=== PATIENT | male | born 1985 | race African-American/Black ===

== ENCOUNTER 2016-09-04 12:59 | Emergency (ER) | payer SELFPAY ==
--- NOTE | 2016-09-04 14:07 | EDM.PDOC ---
ED HPI GENERAL MEDICAL PROBLEM - General Chief Complaint: General Stated Complaint: UNK Time Seen by Provider: 09/04/16 13:02 Source of Information: Reports: Patient History Limitations: Reports: No Limitations - History of Present Illness INITIAL COMMENTS - FREE TEXT/NARRATIVE: History of present illness: [31-year-old male coming in complaining of dental abscess. Patient indicates that it is hurting right thigh and feeling and he doesn't understand because he sustained no trauma to this area.] Review of systems: As per history of present illness and below otherwise all systems reviewed and negative. Past medical history: As per history of present illness and as reviewed below otherwise noncontributory. Surgical history: As per history of present illness and as reviewed below otherwise noncontributory. Social history: No reported history of drug or alcohol abuse. Family history: As per history of present illness and as reviewed below otherwise noncontributory. Physical exam: HEENT: Atraumatic, normocephalic, pupils reactive, negative for conjunctival pallor or scleral icterus, mucous membranes moist, throat clear, neck supple, nontender, trachea midline. Mild amount of swelling to the right jaw area on examination slight swelling of gum right at the region of molar 30. Lungs: Clear to auscultation, breath sounds equal bilaterally, chest nontender. Heart: S1S2, regular, negative for clicks, rubs, or JVD. Abdomen: Soft, nondistended, nontender. Negative for masses or hepatosplenomegaly. Negative for costovertebral tenderness. Pelvis: Stable nontender. Genitourinary: Deferred. Rectal: Deferred. Extremities: Atraumatic, negative for cords or calf pain. Neurovascular unremarkable. Neuro: Awake, alert, oriented. Cranial nerves II through XII unremarkable. Cerebellum unremarkable. Motor and sensory unremarkable throughout. Exam nonfocal. Assessment benign save as noted in the PE with potential dental abscess is immediately to the area of the filling which is most suspicious for some potential shrinking and leakage of an amalgam filling Diagnostics: [] Therapeutics: [] Impression: [Dental abscess] Plan: [Antibiotics, pain] Definitive disposition and diagnosis as appropriate pending reevaluation and review of above. dental Pain Score (Numeric/FACES): 9 - Related Data Allergies Allergy/AdvReac Type Severity Reaction Status Date / Time No Known Allergies Allergy Verified 09/04/16 13:23 Home Meds: Home Meds Acetaminophen [Tylenol Extra Strength] 1,000 mg PO Q4H PRN 09/04/16 [History] Past Medical History - Past Health History Medical/Surgical History: Denies Medical/Surgical History Social & Family History - Family History Oncologic: Reports: Other (See Below) Other Oncologic Family History: unknown cancer - Tobacco Use Smoking Status *Q: Never Smoker Second Hand Smoke Exposure: No - Caffeine Use Caffeine Use: Reports: None - Alcohol Use Days Per Week of Alcohol Use: 1 Number of Drinks Per Day: 1 Total Drinks Per Week: 1 - Recreational Drug Use Recreational Drug Use: No ED ROS GENERAL - Review of Systems Review Of Systems: See Below (See history of present illness) ED EXAM, GENERAL - Physical Exam Exam: See Below (History of present illness) Course - Vital Signs Last Recorded V/S: Last Vital Signs Temp 36.3 C 09/04/16 13:20 Pulse 83 09/04/16 13:20 Resp 16 09/04/16 13:20 BP 124/77 09/04/16 13:20 Pulse Ox 94 L 09/04/16 13:20 Departure - Departure Time of Disposition: 14:05 Disposition: Home, Self-Care 01 Condition: good Clinical Impression: Dental abscess - Discharge Information Forms: ED Department Discharge Additional Instructions: The following information is given to patients seen in the emergency department who are being discharged to home. This information is to outline your options for follow-up care. We provide all patients seen in our emergency department with a follow-up referral. The need for follow-up, as well as the timing and circumstances, are variable depending upon the specifics of your emergency department visit. If you don't have a primary care physician on staff, we will provide you with a referral. We always advise you to contact your personal physician following an emergency department visit to inform them of the circumstance of the visit and for follow-up with them and/or the need for any referrals to a consulting specialist. The emergency department will also refer you to a specialist when appropriate. This referral assures that you have the opportunity for follow-up care with a specialist. All of these measure are taken in an effort to provide you with optimal care, which includes your follow-up. Under all circumstances we always encourage you to contact your private physician who remains a resource for coordinating your care. When calling for follow-up care, please make the office aware that this follow-up is from your recent emergency room visit. If for any reason you are refused follow-up, please contact the [facility] Emergency Department at and asked to speak to the emergency department charge nurse. Take medication as directed Followup with a dentist NEL Return to ED as needed as discussed
[2016-09-04 14:23] VITALS: BP 130/82
== END 2016-09-04 14:24 | disposition home or self-care (01) ==
LOC: MW.ED 12:59 → MERGE 12:59 → MW.ED 14:24
DX: K04.7 Periapical abscess without sinus (principal)
CPT/HCPCS: 99282; 99283

== ENCOUNTER 2017-05-21 23:12 | Emergency (ER) | payer SELFPAY ==
[2017-05-21] MEDS ORDERED: Azithromycin 250 MG Tab PO STA (23:39)
[2017-05-21] MEDS ORDERED: cefTRIAXone 250 MG in Lidocaine 1% 1 ML IM ONE (23:39)
--- NOTE | 2017-05-21 23:41 | EDM.PDOC ---
ED HPI GENERAL MEDICAL PROBLEM - General Chief Complaint: Genitourinary Problem Stated Complaint: UNKNOWN Time Seen by Provider: 05/21/17 23:40 Source of Information: Reports: Patient - History of Present Illness INITIAL COMMENTS - FREE TEXT/NARRATIVE: HISTORY AND PHYSICAL: History of present illness: [Patient presents with urinary frequency dysuria after intercourse with a new partner no fever nausea vomiting chills sweats ] Review of systems: As per history of present illness and below otherwise all systems reviewed and negative. Past medical history: As per history of present illness and as reviewed below otherwise noncontributory. Surgical history: As per history of present illness and as reviewed below otherwise noncontributory. Social history: No reported history of drug or alcohol abuse. Family history: As per history of present illness and as reviewed below otherwise noncontributory. Physical exam: HEENT: Atraumatic, normocephalic, pupils reactive, negative for conjunctival pallor or scleral icterus, mucous membranes moist, throat clear, neck supple, nontender, trachea midline. Lungs: Clear to auscultation, breath sounds equal bilaterally, chest nontender. Heart: S1S2, regular, negative for clicks, rubs, or JVD. Abdomen: Soft, nondistended, nontender. Negative for masses or hepatosplenomegaly. Negative for costovertebral tenderness. Pelvis: Stable nontender. Genitourinary: Deferred. Rectal: Deferred. Extremities: Atraumatic, negative for cords or calf pain. Neurovascular unremarkable. Neuro: Awake, alert, oriented. Cranial nerves II through XII unremarkable. Cerebellum unremarkable. Motor and sensory unremarkable throughout. Exam nonfocal. Diagnostics: [UA with culture GC Chlamydia ] Therapeutics: [Rocephin 250 mg IM Azithromycin 1 g by mouth Cipro 500 by mouth twice a day #14 no refill ] Impression: Penile discharge Dysuria] Definitive disposition and diagnosis as appropriate pending reevaluation and review of above. urination Pain Score (Numeric/FACES): 8 - Related Data Allergies Allergy/AdvReac Type Severity Reaction Status Date / Time No Known Allergies Allergy Verified 05/21/17 23:37 Home Meds: Home Meds Acetaminophen [Tylenol Extra Strength] 1,000 mg PO Q4H PRN 09/04/16 [History] Past Medical History - Past Health History Medical/Surgical History: Denies Medical/Surgical History Social & Family History - Family History Oncologic: Reports: Other (See Below) Other Oncologic Family History: unknown cancer - Tobacco Use Smoking Status *Q: Never Smoker Second Hand Smoke Exposure: No - Caffeine Use Caffeine Use: Reports: None - Alcohol Use Days Per Week of Alcohol Use: 1 Number of Drinks Per Day: 1 Total Drinks Per Week: 1 - Recreational Drug Use Recreational Drug Use: No ED ROS GENERAL - Review of Systems Review Of Systems: ROS reveals no pertinent complaints other than HPI. ED EXAM, GENERAL - Physical Exam Exam: See Below Course - Vital Signs Last Recorded V/S: Last Vital Signs Temp 98.2 F 05/21/17 23:38 Pulse 80 05/21/17 23:38 Resp 14 05/21/17 23:38 BP 116/81 05/21/17 23:38 Pulse Ox 98 05/21/17 23:38 - Orders/Labs/Meds Orders: Active Orders 24 hr Category Date Time Status CHLAMYDIA AND GONORRHEA BY TMA Stat Lab 05/21/17 23:33 Received CULTURE URINE [RM] Stat Lab 05/21/17 23:33 Received Labs: Laboratory Tests 05/21/17 Range/Units 23:33 Urine Color YELLOW Urine Appearance HAZY Urine pH 6.0 (5.0-8.0) Ur Specific Biggs <= 1.005 (1.001-1.035) Urine Protein NEGATIVE (NEGATIVE) mg/dL Urine Glucose (UA) NEGATIVE (NEGATIVE) mg/dL Urine Ketones NEGATIVE (NEGATIVE) mg/dL Urine Occult Blood NEGATIVE (NEGATIVE) Urine Nitrite NEGATIVE (NEGATIVE) Urine Bilirubin NEGATIVE (NEGATIVE) Urine Urobilinogen 0.2 (<2.0) EU/dL Ur Leukocyte Esterase SMALL (NEGATIVE) Urine RBC 0-2 (0-2/HPF) Urine WBC 10-12 (0-5/HPF) Ur Epithelial Cells RARE (NONE-FEW) Urine Bacteria FEW (NEGATIVE) Meds: Medications Discontinued Medications Generic Name Dose Route Start Last Admin Trade Name Sageq PRN Reason Stop Dose Admin Azithromycin 1,000 mg 05/21/17 23:39 Zithromax PO 05/21/17 23:40 NOW STA Ceftriaxone Sodium 250 mg/ 1 mls @ 1 mls/sec 05/21/17 23:39 Lidocaine HCl IM 05/21/17 23:40 ONETIME ONE Departure - Departure Time of Disposition: 23:57 Disposition: Home, Self-Care 01 Condition: Good Clinical Impression: UTI, Urinary tract infectious disease - Discharge Information Referrals: PCP,None [Primary Care Provider] - Forms: ED Department Discharge Additional Instructions: The following information is given to patients seen in the emergency department who are being discharged to home. This information is to outline your options for follow-up care. We provide all patients seen in our emergency department with a follow-up referral. The need for follow-up, as well as the timing and circumstances, are variable depending upon the specifics of your emergency department visit. If you don't have a primary care physician on staff, we will provide you with a referral. We always advise you to contact your personal physician following an emergency department visit to inform them of the circumstance of the visit and for follow-up with them and/or the need for any referrals to a consulting specialist. The emergency department will also refer you to a specialist when appropriate. This referral assures that you have the opportunity for follow-up care with a specialist. All of these measure are taken in an effort to provide you with optimal care, which includes your follow-up. Under all circumstances we always encourage you to contact your private physician who remains a resource for coordinating your care. When calling for follow-up care, please make the office aware that this follow-up is from your recent emergency room visit. If for any reason you are refused follow-up, please contact the [facility] emergency department at and asked to speak to the emergency department charge nurse. - My Orders Last 24 Hours: My Active Orders 05/21/17 23:33 CHLAMYDIA AND GONORRHEA BY TMA Stat CULTURE URINE [RM] Stat - Assessment/Plan Last 24 Hours: My Active Orders 05/21/17 23:33 CHLAMYDIA AND GONORRHEA BY TMA Stat CULTURE URINE [RM] Stat
[2017-05-22 00:25] VITALS: BP 121/83
== END 2017-05-22 00:25 | disposition home or self-care (01) ==
LOC: MW.ED 23:12
DX: N39.0 Urinary tract infection, site not specified (principal); R36.9 Urethral discharge, unspecified
CPT/HCPCS: 81001; 87086; 87491; 87591; 96372; 99283; A9270; J0696

== ENCOUNTER 2018-01-18 09:56 | Emergency (ER) | payer SELFPAY ==
--- NOTE | 2018-01-18 10:24 | EDM.PDOC ---
ED HPI GENERAL MEDICAL PROBLEM - General Chief Complaint: General Stated Complaint: SPOKE TO NURSE Time Seen by Provider: 01/18/18 10:21 Source of Information: Reports: Patient History Limitations: Reports: No Limitations - History of Present Illness INITIAL COMMENTS - FREE TEXT/NARRATIVE: HISTORY AND PHYSICAL: History of present illness: Patient is 32-year-old male here with complaint of blood in his stool. He reports has had bright red blood in his stool 1 week. He states he will have blood without having a bowel movement. He denies any diarrhea, nausea, vomiting , abdominal pain, chest pain, shortness of breath, fevers, chills. He states he had something similar in the past and was given antibiotics. He denies any recent travel or trauma. He states he is usually constipated and does not take anything for this. Review of systems: As per history of present illness and below otherwise all systems reviewed and negative. Past medical history: As per history of present illness and as reviewed below otherwise noncontributory. Surgical history: As per history of present illness and as reviewed below otherwise noncontributory. Social history: No reported history of drug or alcohol abuse. Family history: As per history of present illness and as reviewed below otherwise noncontributory. Physical exam: General: Patient sitting comfortably in no acute distress and nontoxic appearing HEENT: Atraumatic, normocephalic, pupils reactive, negative for conjunctival pallor or scleral icterus, mucous membranes moist, throat clear, neck supple, nontender, trachea midline. No meningeal signs. Lungs: Clear to auscultation, breath sounds equal bilaterally, chest nontender. Heart: S1S2, regular, negative for clicks, rubs, or overt murmur. Abdomen: Soft, nondistended, nontender. Negative for masses or hepatosplenomegaly. Negative for costovertebral tenderness. Pelvis: Stable nontender. Genitourinary: Deferred. Rectal: External hemorrhoids noted without bleeding. Extremities: Atraumatic, negative for cords or calf pain. Neurovascular unremarkable. Neuro: Awake, alert, oriented. Cranial nerves II through XII unremarkable. Cerebellum unremarkable. Motor and sensory unremarkable throughout. Exam nonfocal. Notes: Diagnostics: CBC, CMP Hemoccult - negative Therapeutics: None Prescriptions: None Impression: Hemorrhoids Plan: 1. Use preparation H suppositories and use miralax as instructed 2. Follow up with general surgery, call number above to schedule appointment 3. Return to ED as needed as discussed Definitive disposition and diagnosis as appropriate pending reevaluation and review of above. - Related Data Allergies Allergy/AdvReac Type Severity Reaction Status Date / Time No Known Allergies Allergy Verified 01/18/18 10:17 Home Meds: Home Meds . [No Known Home Meds] 01/18/18 [History] Past Medical History - Past Health History Medical/Surgical History: Denies Medical/Surgical History HEENT History: Reports: None Cardiovascular History: Reports: None Gastrointestinal History: Reports: None Genitourinary History: Reports: None Musculoskeletal History: Reports: None Neurological History: Reports: None Psychiatric History: Reports: None Endocrine/Metabolic History: Reports: None - Infectious Disease History Infectious Disease History: Reports: None Social & Family History - Family History Family Medical History: Noncontributory Oncologic: Reports: Other (See Below) Other Oncologic Family History: unknown cancer - Caffeine Use Caffeine Use: Reports: None ED ROS GENERAL - Review of Systems Review Of Systems: ROS reveals no pertinent complaints other than HPI. ED EXAM, GENERAL - Physical Exam Exam: See Below (see dictation) Course - Vital Signs Last Recorded V/S: Last Vital Signs Temp 36.4 C 01/18/18 10:15 Pulse 78 01/18/18 10:15 Resp 18 01/18/18 10:15 BP 120/82 01/18/18 10:15 Pulse Ox 97 01/18/18 10:15 - Orders/Labs/Meds Labs: Laboratory Tests 01/18/18 01/18/18 Range/Units 10:46 10:46 WBC 5.56 (4.0-11.0) K/uL RBC 4.71 (4.50-5.90) M/uL Hgb 13.5 (13.0-17.0) g/dL Hct 41.5 (38.0-50.0) % MCV 88.1 (80.0-98.0) fL MCH 28.7 (27.0-32.0) pg MCHC 32.5 (31.0-37.0) g/dL RDW Std Deviation 44.4 (28.0-62.0) fl RDW Coeff of Luis M 14 (11.0-15.0) % Plt Count 239 (150-400) K/uL MPV 9.70 (7.40-12.00) fL Nucleated RBC % 0.0 /100WBC Nucleated RBCs # 0 K/uL Sodium 142 (136-148) mmol/L Potassium 4.8 (3.5-5.1) mmol/L Chloride 106 (98-107) mmol/L Carbon Dioxide 26.1 (21.0-32.0) mmol/L BUN 14 (7.0-18.0) mg/dL Creatinine 1.2 (0.8-1.3) mg/dL Est Cr Clr Drug Dosing 97.90 mL/min Estimated GFR (MDRD) > 60.0 ml/min Glucose 94 (74-106) mg/dL Calcium 9.5 (8.5-10.1) mg/dL Total Bilirubin 0.4 (0.2-1.0) mg/dL AST 20 (15-37) IU/L ALT 29 (14-63) IU/L Alkaline Phosphatase 51 (46-116) U/L Total Protein 7.6 (6.4-8.2) g/dL Albumin 4.2 (3.4-5.0) g/dL Globulin 3.4 (2.0-3.5) g/dL Albumin/Globulin Ratio 1.2 L (1.3-2.8) Departure - Departure Time of Disposition: 11:37 Disposition: Home, Self-Care 01 Condition: Good Clinical Impression: Hemorrhoids - Discharge Information Referrals: PCP,None [Primary Care Provider] - Forms: ED Department Discharge Additional Instructions: The following information is given to patients seen in the emergency department who are being discharged to home. This information is to outline your options for follow-up care. We provide all patients seen in our emergency department with a follow-up referral. The need for follow-up, as well as the timing and circumstances, are variable depending upon the specifics of your emergency department visit. If you don't have a primary care physician on staff, we will provide you with a referral. We always advise you to contact your personal physician following an emergency department visit to inform them of the circumstance of the visit and for follow-up with them and/or the need for any referrals to a consulting specialist. The emergency department will also refer you to a specialist when appropriate. This referral assures that you have the opportunity for follow-up care with a specialist. All of these measure are taken in an effort to provide you with optimal care, which includes your follow-up. Under all circumstances we always encourage you to contact your private physician who remains a resource for coordinating your care. When calling for follow-up care, please make the office aware that this follow-up is from your recent emergency room visit. If for any reason you are refused follow-up, please contact the [facility] Emergency Department at and asked to speak to the emergency department charge nurse. [facility] - General Surgery Professional Building [address] [place] [address], [address] [place] [address] 1. Use preparation H suppositories and use miralax as instructed 2. Follow up with general surgery, call number above to schedule appointment 3. Return to ED as needed as discussed
[2018-01-18 11:30] LABS: CHLORIDE,CL 106 mmol/L (98-107); SODIUM,NA 142 mmol/L (136-148)
[2018-01-18 11:54] VITALS: BP 121/70
== END 2018-01-18 11:54 | disposition home or self-care (01) ==
LOC: MW.ED 09:56
DX: K64.9 Unspecified hemorrhoids (principal)
CPT/HCPCS: 36415; 80053; 85027; 99282; 99284

== ENCOUNTER 2018-08-20 13:36 | Emergency (ER) | payer SELFPAY ==
[2018-08-20 13:42] VITALS: BP 138/85
[2018-08-20] MEDS ORDERED: Sodium Chloride 0.9% 1,000 ML IV ONE (13:51)
--- NOTE | 2018-08-20 13:52 | EDM.PDOC ---
ED HPI GENERAL MEDICAL PROBLEM - General Chief Complaint: Chest Pain Stated Complaint: CHEST PAIN Time Seen by Provider: 08/20/18 13:51 Source of Information: Reports: Patient History Limitations: Reports: No Limitations - History of Present Illness INITIAL COMMENTS - FREE TEXT/NARRATIVE: HISTORY AND PHYSICAL: History of present illness: Patient is a 33-year-old male who presents to the emergency room with complaints of epigastric pain and nausea since 0600 today. States pain has been constant, and not associated with food. Patient denies any fever, chills, headache, change in vision, syncope or near syncope. Denies any chest pain, back pain, shortness of breath or cough. Denies any vomiting, diarrhea, constipation or dysuria. Has not noted any blood in urine or stool. Patient had been eating and drinking appropriately. No history of GERD or GI conditions. Review of systems: As per history of present illness and below otherwise all systems reviewed and negative. Past medical history: As per history of present illness and as reviewed below otherwise noncontributory. Surgical history: As per history of present illness and as reviewed below otherwise noncontributory. Social history: See social history for further information Family history: As per history of present illness and as reviewed below otherwise noncontributory. Physical exam: General: Well-developed and well-nourished 33-year-old male. Alert and oriented. Nontoxic appearing and in no acute distress. HEENT: Atraumatic, normocephalic, pupils equal and reactive bilaterally, negative for conjunctival pallor or scleral icterus, mucous membranes moist, TMs normal bilaterally, throat clear, neck supple, nontender, trachea midline. No drooling or trismus noted. No meningeal signs. No hot potato voice noted. Lungs: Clear to auscultation, breath sounds equal bilaterally, chest nontender. Heart: S1S2, regular rate and rhythm without overt murmur Abdomen: Soft, nondistended, nontender. Negative for masses or hepatosplenomegaly. Negative for costovertebral tenderness. Pelvis: Stable nontender. Genitourinary: Deferred. Rectal: Deferred. Skin: Intact, warm, dry. No lesions or rashes noted. Extremities: Atraumatic, moves all extremities per self without difficulty or deficits, negative for cords or calf pain. Neurovascular unremarkable. Neuro: Awake, alert, oriented. Cranial nerves II through XII unremarkable. Cerebellum unremarkable. Motor and sensory unremarkable throughout. Exam nonfocal. Notes: Physical examination is within normal limits. Patient is agreeable to do limited lab work. 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 GI cocktail given with resolve of the epigastric pain. Lab work is unremarkable with the exception of elevated lipase. Patient was made aware of this. He declines any imaging of his abdomen and is requesting discharge. He states he will follow-up with his primary care provider for repeat labs and further evaluation/management. Vital signs stable. We'll give prescription for omeprazole. Supportive care measures were reviewed and discussed. Voices understanding and is agreeable to plan of care. Denies any further questions or concerns at this time. Diagnostics: CBC, CMP, Lipase, Troponin, EKG, Chest x-ray Therapeutics: GI cocktail Prescription: Omeprozole Impression: Epigastric Pain Plan: 1. Please follow up with your primary care provider for re-evaluate and repeat labs. 2. Take the omeprozole as directed. 3. Return to the ED as needed as discussed. Definitive disposition and diagnosis as appropriate pending reevaluation and review of above. Onset: Today Duration: Hour(s): Location: Reports: Abdomen epigastric, abdomen Pain Score (Numeric/FACES): 4 - Related Data Allergies Allergy/AdvReac Type Severity Reaction Status Date / Time No Known Allergies Allergy Verified 08/20/18 13:41 Home Meds: Home Meds . [No Known Home Meds] 01/18/18 [History] Past Medical History - Past Health History Medical/Surgical History: Denies Medical/Surgical History HEENT History: Reports: None Cardiovascular History: Reports: None Gastrointestinal History: Reports: None Genitourinary History: Reports: None Musculoskeletal History: Reports: None Neurological History: Reports: None Psychiatric History: Reports: None Endocrine/Metabolic History: Reports: None - Infectious Disease History Infectious Disease History: Reports: None - Past Surgical History Musculoskeletal Surgical History: Reports: Other (See Below) Other Musculoskeletal Surgeries/Procedures:: Right Thumb Social & Family History - Family History Family Medical History: Noncontributory Oncologic: Reports: Other (See Below) Other Oncologic Family History: unknown cancer - Tobacco Use Smoking Status *Q: Never Smoker - Caffeine Use Caffeine Use: Reports: None - Alcohol Use Days Per Week of Alcohol Use: 4 Number of Drinks Per Day: 2 Total Drinks Per Week: 8 - Recreational Drug Use Recreational Drug Use: No ED ROS GENERAL - Review of Systems Review Of Systems: ROS reveals no pertinent complaints other than HPI. ED EXAM, GENERAL - Physical Exam Exam: See Below (See dictation) Course - Vital Signs Last Recorded V/S: Last Vital Signs Temp 96.8 F 08/20/18 13:38 Pulse 75 08/20/18 13:38 Resp 14 08/20/18 13:38 BP 138/85 08/20/18 13:38 Pulse Ox 98 08/20/18 13:38 - Orders/Labs/Meds Orders: Active Orders 24 hr Category Date Time Status EKG Documentation Completion [RC] STAT Care 08/20/18 13:51 Inactive Labs: Laboratory Tests 08/20/18 08/20/18 08/20/18 Range/Units 14:01 14:01 14:01 WBC 5.26 (4.0-11.0) K/uL RBC 4.45 L (4.50-5.90) M/uL Hgb 12.6 L (13.0-17.0) g/dL Hct 39.9 (38.0-50.0) % MCV 89.7 (80.0-98.0) fL MCH 28.3 (27.0-32.0) pg MCHC 31.6 (31.0-37.0) g/dL RDW Std Deviation 47.9 (28.0-62.0) fl RDW Coeff of Luis M 15 (11.0-15.0) % Plt Count 269 (150-400) K/uL MPV 9.50 (7.40-12.00) fL Neut % (Auto) 49.2 (48.0-80.0) % Lymph % (Auto) 39.7 (16.0-40.0) % [place] % (Auto) 9.9 (0.0-15.0) % Eos % (Auto) 1.0 (0.0-7.0) % Baso % (Auto) 0.2 (0.0-1.5) % Neut # (Auto) 2.6 (1.4-5.7) K/uL Lymph # (Auto) 2.1 (0.6-2.4) K/uL [place] # (Auto) 0.5 (0.0-0.8) K/uL Eos # (Auto) 0.1 (0.0-0.7) K/uL Baso # (Auto) 0.0 (0.0-0.1) K/uL Nucleated RBC % 0.0 /100WBC Nucleated RBCs # 0 K/uL Sodium 138 (136-148) mmol/L Potassium 4.0 (3.5-5.1) mmol/L Chloride 102 (98-107) mmol/L Carbon Dioxide 27.8 (21.0-32.0) mmol/L BUN 16 (7.0-18.0) mg/dL Creatinine 1.1 (0.8-1.3) mg/dL Est Cr Clr Drug Dosing 102.68 mL/min Estimated GFR (MDRD) > 60.0 ml/min Glucose 100 (74-106) mg/dL Calcium 9.1 (8.5-10.1) mg/dL Total Bilirubin 0.6 (0.2-1.0) mg/dL AST 17 (15-37) IU/L ALT 25 (14-63) IU/L Alkaline Phosphatase 56 (46-116) U/L Troponin I < 0.050 (0.000-0.056) ng/mL Total Protein 7.8 (6.4-8.2) g/dL Albumin 3.7 (3.4-5.0) g/dL Globulin 4.1 H (2.6-4.0) g/dL Albumin/Globulin Ratio 0.9 (0.9-1.6) Lipase (73-393) U/L H. pylori IgG Antibody NEGATIVE (NEG) 08/20/18 Range/Units 14:01 WBC (4.0-11.0) K/uL RBC (4.50-5.90) M/uL Hgb (13.0-17.0) g/dL Hct (38.0-50.0) % MCV (80.0-98.0) fL MCH (27.0-32.0) pg MCHC (31.0-37.0) g/dL RDW Std Deviation (28.0-62.0) fl RDW Coeff of Luis M (11.0-15.0) % Plt Count (150-400) K/uL MPV (7.40-12.00) fL Neut % (Auto) (48.0-80.0) % Lymph % (Auto) (16.0-40.0) % [place] % (Auto) (0.0-15.0) % Eos % (Auto) (0.0-7.0) % Baso % (Auto) (0.0-1.5) % Neut # (Auto) (1.4-5.7) K/uL Lymph # (Auto) (0.6-2.4) K/uL [place] # (Auto) (0.0-0.8) K/uL Eos # (Auto) (0.0-0.7) K/uL Baso # (Auto) (0.0-0.1) K/uL Nucleated RBC % /100WBC Nucleated RBCs # K/uL Sodium (136-148) mmol/L Potassium (3.5-5.1) mmol/L Chloride (98-107) mmol/L Carbon Dioxide (21.0-32.0) mmol/L BUN (7.0-18.0) mg/dL Creatinine (0.8-1.3) mg/dL Est Cr Clr Drug Dosing mL/min Estimated GFR (MDRD) ml/min Glucose (74-106) mg/dL Calcium (8.5-10.1) mg/dL Total Bilirubin (0.2-1.0) mg/dL AST (15-37) IU/L ALT (14-63) IU/L Alkaline Phosphatase (46-116) U/L Troponin I (0.000-0.056) ng/mL Total Protein (6.4-8.2) g/dL Albumin (3.4-5.0) g/dL Globulin (2.6-4.0) g/dL Albumin/Globulin Ratio (0.9-1.6) Lipase 427 H (73-393) U/L H. pylori IgG Antibody (NEG) Meds: Medications Discontinued Medications Generic Name Dose Route Start Last Admin Trade Name Freq PRN Reason Stop Dose Admin Al Hydroxide/Mg Hydroxide 15 0 ml 08/20/18 14:06 08/20/18 14:32 ml/ Metoclopramide HCl 5 mg/ PO 08/20/18 14:07 1 each Lidocaine HCl 5 ml ONETIME ONE Administration Sodium Chloride 1,000 mls @ 999 mls/hr 08/20/18 13:51 08/20/18 15:00 Normal Saline IV 08/20/18 14:51 Not Given STAT ONE Departure - Departure Time of Disposition: 14:49 Disposition: Home, Self-Care 01 Clinical Impression: Epigastric pain Instructions: Abdominal Pain, Adult, [id number] Referrals: PCP,Unknown [Primary Care Provider] - Forms: ED Department Discharge Additional Instructions: The following information is given to patients seen in the emergency department who are being discharged to home. This information is to outline your options for follow-up care. We provide all patients seen in our emergency department with a follow-up referral. The need for follow-up, as well as the timing and circumstances, are variable depending upon the specifics of your emergency department visit. If you don't have a primary care physician on staff, we will provide you with a referral. We always advise you to contact your personal physician following an emergency department visit to inform them of the circumstance of the visit and for follow-up with them and/or the need for any referrals to a consulting specialist. The emergency department will also refer you to a specialist when appropriate. This referral assures that you have the opportunity for follow-up care with a specialist. All of these measure are taken in an effort to provide you with optimal care, which includes your follow-up. Under all circumstances we always encourage you to contact your private physician who remains a resource for coordinating your care. When calling for follow-up care, please make the office aware that this follow-up is from your recent emergency room visit. If for any reason you are refused follow-up, please contact the [facility] Emergency Department at and asked to speak to the emergency department charge nurse. [facility] [address] [place] [address] [facility] [address] [place] [id number] 1. Please follow up with your primary care provider for re-evaluate and repeat labs. 2. Take the omeprazole as directed. 3. Return to the ED as needed as discussed. - My Orders Last 24 Hours: My Active Orders 08/20/18 13:51 EKG Documentation Completion [RC] STAT - Assessment/Plan Last 24 Hours: My Active Orders 08/20/18 13:51 EKG Documentation Completion [RC] STAT
[2018-08-20] MEDS ORDERED: Alum Hydrox/Mag Hydrox/Simeth 15 ML, Metoclopramide 5 MG, Lidocaine 2% 5 ML PO ONE ×3 (14:06)
[2018-08-20 14:43] LABS: CHLORIDE,CL 102 mmol/L (98-107); SODIUM,NA 138 mmol/L (136-148)
--- NOTE | 2018-08-20 14:56 | CR ---
EXAMINATION: Portable chest radiograph. HISTORY: Chest pain. FINDINGS: The trachea is midline. The cardiomediastinal silhouette is within normal limits. No pulmonary infiltrates, effusions or pneumothorax. Osseous structures appear unremarkable. IMPRESSION: No acute cardiopulmonary process.
== END 2018-08-20 15:15 | disposition home or self-care (01) ==
LOC: MW.ED 13:36
DX: R10.13 Epigastric pain (principal)
CPT/HCPCS: 36415; 71045; 80053; 83690; 84484; 85025; 86677; 99284; A9270

== ENCOUNTER 2019-12-10 12:16 | Emergency (ER) | payer SELFPAY ==
--- NOTE | 2019-12-10 12:59 | EDM.PDOC ---
ED HPI GENERAL MEDICAL PROBLEM - General Chief Complaint: Respiratory Problem Stated Complaint: sob Time Seen by Provider: 12/10/19 12:17 Source of Information: Reports: Patient History Limitations: Reports: No Limitations - History of Present Illness INITIAL COMMENTS - FREE TEXT/NARRATIVE: HISTORY AND PHYSICAL: History of present illness: Patient is a 34-year-old male who presents to the ED today with concern of right lung discomfort when he takes a big deep breath in. Patient states this is been ongoing for the past 2 weeks and is worse at work when he is being active. Patient states that if he takes a big deep breath he feels a sharp uncomfortable sensation in the outside of his right lung. Patient states that he does not necessarily feel short of breath but as if he needs to take a big or deep breath in. Patient denies any trauma or injury or any other associated symptoms. Patient denies any health history. Patient denies fever, chills, chest pain, shortness of breath, or cough. Denies headache, neck stiff ness, change in vision, syncope, or near syncope. Denies nausea, vomiting, abdominal pain, diarrhea, constipation, or dysuria. Has not noted any blood in urine or stool. Patient has been eating and drinking appropriately. Review of systems: As per history of present illness and below otherwise all systems reviewed and negative. Past medical history: As per history of present illness and as reviewed below otherwise noncontributory. Surgical history: As per history of present illness and as reviewed below otherwise noncontributory. Social history: See social history for further information Family history: As per history of present illness and as reviewed below otherwise noncontributory. Physical exam: General: Patient is alert, oriented, and in no acute distress. Patient sitting comfortably on exam table. HEENT: Atraumatic, normocephalic, pupils equal and reactive bilaterally, negative for conjunctival pallor or scleral icterus, mucous membranes moist, TMs normal bilaterally, throat clear, neck supple, nontender, trachea midline. No drooling or trismus noted. No meningeal signs. No hot potato voice noted. Lungs: Patient speaking clearly without breathlessness, no wheezing or stridor, no accessory muscle use or respiratory distress. Auscultation deferred due to current COV-ID 19 outbreak. Heart: Auscultation deferred due to current COVID outbreak. Abdomen: nondistended Pelvis: Stable nontender. Genitourinary: Deferred. Rectal: Deferred. Skin: Intact, warm, dry. No lesions or rashes noted. Extremities: Atraumatic, negative for cords or calf pain. Neurovascular unremarkable. Neuro: Awake, alert, oriented. Cranial nerves II through XII unremarkable. Cerebellum unremarkable. Motor and sensory unremarkable throughout. Exam nonfocal. Notes: HEART Score 0. Low risk. Discussed importance for follow-up with a primary care provider. Voices understanding and is agreeable to plan of care. Denies any further questions or concerns at this time. Diagnostics: EKG, CBC, CMP, chest x-ray, troponin Therapeutics: None Prescription: None Impression: Atypical chest pain Plan: 1. You can alternate ibuprofen and Tylenol as directed for pain and discomfort. Follow-up with a primary care provider as discussed. Return to the ED as needed and as discussed. Definitive disposition and diagnosis as appropriate pending reevaluation and review of above. - Related Data Allergies Allergy/AdvReac Type Severity Reaction Status Date / Time No Known Allergies Allergy Verified 12/10/19 12:33 Home Meds: Home Meds . [No Known Home Meds] 01/18/18 [History] Past Medical History - Past Health History Medical/Surgical History: Denies Medical/Surgical History HEENT History: Reports: None Cardiovascular History: Reports: None Respiratory History: Reports: Asthma Gastrointestinal History: Reports: None Genitourinary History: Reports: None Musculoskeletal History: Reports: None Neurological History: Reports: None Psychiatric History: Reports: None Endocrine/Metabolic History: Reports: None Hematologic History: Reports: None Immunologic History: Reports: None Oncologic (Cancer) History: Reports: None Dermatologic History: Reports: None - Infectious Disease History Infectious Disease History: Reports: None - Past Surgical History Head Surgeries/Procedures: Reports: None HEENT Surgical History: Reports: None Cardiovascular Surgical History: Reports: None Respiratory Surgical History: Reports: None GI Surgical History: Reports: None Male Surgical History: Reports: None Endocrine Surgical History: Reports: None Neurological Surgical History: Reports: None Musculoskeletal Surgical History: Reports: Other (See Below) Other Musculoskeletal Surgeries/Procedures:: Right Thumb Oncologic Surgical History: Reports: None Dermatological Surgical History: Reports: None Social & Family History - Family History Family Medical History: Noncontributory Oncologic: Reports: Other (See Below) Other Oncologic Family History: unknown cancer - Tobacco Use Smoking Status *Q: Never Smoker Second Hand Smoke Exposure: No - Caffeine Use Caffeine Use: Reports: Energy Drinks - Recreational Drug Use Recreational Drug Use: No ED ROS GENERAL - Review of Systems Review Of Systems: Comprehensive ROS is negative, except as noted in HPI. ED EXAM, GENERAL - Physical Exam Exam: See Below (see dictation) Course - Vital Signs Last Recorded V/S: Last Vital Signs Temp 96.8 F L 12/10/19 12:33 Pulse 75 12/10/19 12:33 Resp 18 12/10/19 12:33 BP 138/61 12/10/19 12:33 Pulse Ox 96 12/10/19 12:33 - Orders/Labs/Meds Orders: Active Orders 24 hr Category Date Time Status EKG Documentation Completion [RC] STAT Care 12/10/19 12:23 Active Labs: Laboratory Tests 12/10/19 12/10/19 Range/Units 13:07 13:07 WBC 3.48 L (4.0-11.0) K/uL RBC 4.82 (4.50-5.90) M/uL Hgb 13.9 (13.0-17.0) g/dL Hct 43.1 (38.0-50.0) % MCV 89.4 (80.0-98.0) fL MCH 28.8 (27.0-32.0) pg MCHC 32.3 (31.0-37.0) g/dL RDW Std Deviation 47.0 (28.0-62.0) fl RDW Coeff of Luis M 14 (11.0-15.0) % Plt Count 243 (150-400) K/uL MPV 9.90 (7.40-12.00) fL Neut % (Auto) 45.2 L (48.0-80.0) % Lymph % (Auto) 37.6 (16.0-40.0) % [place] % (Auto) 14.9 (0.0-15.0) % Eos % (Auto) 1.7 (0.0-7.0) % Baso % (Auto) 0.6 (0.0-1.5) % Neut # (Auto) 1.6 (1.4-5.7) K/uL Lymph # (Auto) 1.3 (0.6-2.4) K/uL [place] # (Auto) 0.5 (0.0-0.8) K/uL Eos # (Auto) 0.1 (0.0-0.7) K/uL Baso # (Auto) 0.0 (0.0-0.1) K/uL Nucleated RBC % 0.0 /100WBC Nucleated RBCs # 0 K/uL Sodium 141 (136-148) mmol/L Potassium 3.7 (3.5-5.1) mmol/L Chloride 106 (98-107) mmol/L Carbon Dioxide 27.4 (21.0-32.0) mmol/L BUN 18 (7.0-18.0) mg/dL Creatinine 1.3 (0.8-1.3) mg/dL Est Cr Clr Drug Dosing 88.71 mL/min Estimated GFR (MDRD) > 60.0 ml/min Glucose 86 (74-106) mg/dL Calcium 8.8 (8.5-10.1) mg/dL Total Bilirubin 0.4 (0.2-1.0) mg/dL AST 27 (15-37) IU/L ALT 28 (14-63) IU/L Alkaline Phosphatase 51 (46-116) U/L Troponin I < 0.050 (0.000-0.056) ng/mL Total Protein 7.2 (6.4-8.2) g/dL Albumin 3.8 (3.4-5.0) g/dL Globulin 3.4 (2.6-4.0) g/dL Albumin/Globulin Ratio 1.1 (0.9-1.6) Departure - Departure Time of Disposition: 14:05 Disposition: Home, Self-Care 01 Clinical Impression: Atypical chest pain - Discharge Information Instructions: Nonspecific Chest Pain, Adult, [id number] Referrals: PCP,None [Primary Care Provider] - Forms: ED Department Discharge Additional Instructions: The following information is given to patients seen in the emergency department who are being discharged to home. This information is to outline your options for follow-up care. We provide all patients seen in our emergency department with a follow-up referral. The need for follow-up, as well as the timing and circumstances, are variable depending upon the specifics of your emergency department visit. If you don't have a primary care physician on staff, we will provide you with a referral. We always advise you to contact your personal physician following an emergency department visit to inform them of the circumstance of the visit and for follow-up with them and/or the need for any referrals to a consulting specialist. The emergency department will also refer you to a specialist when appropriate. This referral assures that you have the opportunity for follow-up care with a specialist. All of these measure are taken in an effort to provide you with optimal care, which includes your follow-up. Under all circumstances we always encourage you to contact your private physician who remains a resource for coordinating your care. When calling for follow-up care, please make the office aware that this follow-up is from your recent emergency room visit. If for any reason you are refused follow-up, please contact the [facility] Emergency Department at and asked to speak to the emergency department charge nurse. [facility] [address] [place], [place] [id number] [facility] [address] [place] [address] 1. You can alternate ibuprofen and Tylenol as directed for pain and discomfort. Follow-up with a primary care provider as discussed. Return to the ED as needed and as discussed. Sepsis Event Note (ED) - Evaluation Sepsis Screening Result: No Definite Risk - Focused Exam Vital Signs: Vital Signs Temp Pulse Resp BP Pulse Ox 12/10/19 12:33 96.8 F L 75 18 138/61 96 - My Orders Last 24 Hours: My Active Orders 12/10/19 12:23 EKG Documentation Completion [RC] STAT - Assessment/Plan Last 24 Hours: My Active Orders 12/10/19 12:23 EKG Documentation Completion [RC] STAT
[2019-12-10 13:53] LABS: BLOOD UREA NITROGEN,BUN 18 mg/dL (7.0-18.0); CARBON DIOXIDE,CO2 27.4 mmol/L (21.0-32.0); CHLORIDE,CL 106 mmol/L (98-107); GLUCOSE RANDOM 86 mg/dL (74-106); POTASSIUM,K 3.7 mmol/L (3.5-5.1); SODIUM,NA 141 mmol/L (136-148)
--- NOTE | 2019-12-10 14:00 | CR ---
Chest: 2 views of the chest were obtained. Comparison: Prior chest x-ray of 08/20/18. Heart size and mediastinum are normal. Lungs are clear with no acute parenchymal change. Bony structures are within normal limits for the patient's age. Impression: 1. Nothing acute is appreciated on 2 view chest x-ray. Diagnostic code #2 This report was dictated in MDT
[2019-12-10 20:03] VITALS: BP 126/59; PULSE 84
== END 2019-12-10 14:11 | disposition home or self-care (01) ==
LOC: MW.ED 12:16
DX: R07.89 Other chest pain (principal); J45.909 Unspecified asthma, uncomplicated
CPT/HCPCS: 36415; 71046; 71046-26; 80053; 84484; 85025; 93005; 99283; 99285-25

== ENCOUNTER 2024-12-28 22:21 | Emergency (ER) | payer SELFPAY ==
[2024-12-28] MEDS: Diphtheria,Pertussis(Acell),Tetanus Vaccine 0.5 ML Syringe IM ONE (23:17)
[2024-12-29 00:18] VITALS: BP 140/84; PULSE 86
== END 2024-12-29 00:17 | disposition home or self-care (01) ==
LOC: MW.ED 22:21
DX: L08.9 Local infection of the skin and subcutaneous tissue, unspecified (principal); L53.9 Erythematous condition, unspecified; Z23 Encounter for immunization
CPT/HCPCS: 73130; 90471; 90715; 99283; A9270